=== PATIENT | male | born 1995 | race Caucasian/White ===

== ENCOUNTER 2018-06-17 20:48 | Emergency (ER) | payer BC ==
[2018-06-17 20:57] VITALS: BP 129/88
[2018-06-17] MEDS ORDERED: oxyCODONE/Acetamin 5/325 MG* TAB PO ONE (21:15)
[2018-06-17] MEDS ORDERED: Clindamycin CAP* 150 MG PO ONE (21:15)
--- NOTE | 2018-06-17 21:18 | ED ---
Throat Pain/Nasal Congestion - HPI Summary HPI Summary: A 22 y/o female presents to [facility] with a chief complaint of a back left toothache for the past two to three days. He rates his pain as an 8/10 in severity. He notes that he has an appointment with his dentist next week. He claims that he tried Tylenol [employer] to no relief. He denies fevers or chills. - History of Current Complaint Chief Complaint: EDDentalPain Time Seen by Provider: 06/17/18 21:10 Hx Obtained From: Patient Onset/Duration: Sudden Onset, Lasting Days, Still Present Severity: Severe Associated Signs And Symptoms: Positive: Negative - fever, chills Cough: None - Allergies/Home Medications Allergies/Adverse Reactions: Allergies Allergy/AdvReac Type Severity Reaction Status Date / Time No Known Allergies Allergy Verified 06/17/18 20:53 PMH/Surg Hx/FS Hx/Imm Hx Endocrine/Hematology History: Denies: Hx Diabetes Cardiovascular History: Denies: Hx Hypertension - Surgical History Surgery Procedure, Year, and Place: wisdom tooth removal Infectious Disease History: No Infectious Disease History: Denies: Traveled Outside the [place] in Last 30 Days - Family History Known Family History: Positive: Diabetes - both parents - Social History Alcohol Use: None Hx Substance Use: Yes Substance Use Type: Reports: Marijuana Hx Tobacco Use: Yes Smoking Status (MU): Current Some Day Smoker Review of Systems Negative: Fever, Chills Positive: Dental Pain All Other Systems Reviewed And Are Negative: Yes Physical Exam - Summary Physical Exam Summary: Appearance: Well appearing, no pain distress Skin: warm, dry, reflects adequate perfusion Head/face: tenderness over 17th tooth Eyes: EOMI, ZULLY ENT: normal Neck: supple, non-tender Respiratory: CTA, breath sounds present Cardiovascular: RRR, pulses symmetrical Abdomen: non-tender, soft Musculoskeletal: normal, strength/ROM intact Neuro: normal, sensory motor intact, A&Ox3 Triage Information Reviewed: Yes Vital Signs On Initial Exam: Initial Vitals Temp Pulse Resp BP Pulse Ox 98.1 F 90 18 129/88 97 06/17/18 20:53 06/17/18 20:53 06/17/18 20:53 06/17/18 20:53 06/17/18 20:53 Vital Signs Reviewed: Yes Diagnostics - Vital Signs Vital Signs Temp Pulse Resp BP Pulse Ox 06/17/18 20:53 98.1 F 90 18 129/88 97 - Laboratory Lab Statement: Any lab studies that have been ordered have been reviewed, and results considered in the medical decision making process. EENT Course/Dx - Course Course Of Treatment: A 22 y/o female presents to [facility] with a chief complaint of a back left toothache for the past two to three days. The physical exam revealed tenderness over 17th tooth. The patient will be discharged with prescriptions for Motrin, Ultram and Clindamycin. The patient will follow up with his dentist and is agreeable with this plan. - Differential Diagnoses Differential Diagnoses: Other - dental pain - Diagnoses Provider Diagnoses: Pain, dental Discharge - Sign-Out/Discharge Documenting (check all that apply): Patient Departure - DC Patient Received Moderate/Deep Sedation with Procedure: No - Discharge Plan Condition: Stable Disposition: HOME Prescriptions: Clindamycin HCl 300 mg PO QID #40 capsule Ibuprofen TAB* [Motrin TAB* 600 MG] 600 mg PO Q8H PRN #15 tab MDD 3 PRN Reason: Pain Tramadol HCl [Ultram] 50 mg PO BID #6 tablet MDD 2 Tramadol HCl [Ultram] 50 mg PO BID #6 tablet MDD 2 Patient Education Materials: Toothache (ED) Referrals: [facility] [place] [facility]ERR[facility] [Outside] - 3 Days Additional Instructions: Follow up with your dentist. Return to the ED if you experience any new or worsening symptoms. - Billing Disposition and Condition Condition: STABLE Disposition: Home - Attestation Statements Document Initiated by Anh: Yes Documenting Scribe: Chao Landin Provider For Whom Anh is Documenting (Include Credential): Jason Campos MD Scribe Attestation: Chao Renee scribed for Jason Campos MD on 06/18/18 at 1039. Scribe Documentation Reviewed: Yes Provider Attestation: The documentation as recorded by the Chao jamison accurately reflects the service I personally performed and the decisions made by Jason irizarry MD Status of Scribe Document: Viewed
== END 2018-06-17 21:30 | disposition home or self-care (01) ==
LOC: ED 20:48
DX: K08.89 Other specified disorders of teeth and supporting structures (principal); Z72.0 Tobacco use
CPT/HCPCS: 99282; A9270-GY

== ENCOUNTER 2018-11-26 17:56 | Emergency (ER) | payer BC, OTHER ==
[2018-11-26] MEDS ORDERED: Lidocaine 1% MPF ** 5 ML VIAL INJ ONE (19:46)
--- NOTE | 2018-11-26 19:48 | ED ---
Laceration/Wound HPI - HPI Summary HPI Summary: 23 year old male presents with laceration to right thumb today. He states that he cut it while cutting earl. He states a coworker place glue on it and stuck a bandage on it. The glue was not dry. He states that glue stuck to the bandage. No active bleeding. Tetanus up-to-date. no medical conditions. he is right handed. - History of Current Complaint Stated Complaint: CUT MY FINGER PER PT Time Seen by Provider: 11/26/18 19:33 Pain Intensity: 3 - Allergy/Home Medications Allergies/Adverse Reactions: Allergies Allergy/AdvReac Type Severity Reaction Status Date / Time No Known Allergies Allergy Verified 11/26/18 18:01 Home Medications: Home Medications NK [No Home Medications Reported] 11/26/18 [History Confirmed 11/26/18] PMH/Surg Hx/FS Hx/Imm Hx Endocrine/Hematology History: Denies: Hx Diabetes Cardiovascular History: Denies: Hx Hypertension - Surgical History Surgery Procedure, Year, and Place: wisdom tooth removal Infectious Disease History: No Infectious Disease History: Denies: Traveled Outside the [place] in Last 30 Days - Family History Known Family History: Positive: Diabetes - both parents - Social History Alcohol Use: Daily Alcohol Amount: 3 beer/night Hx Substance Use: Yes Substance Use Type: Reports: None Substance Use Comment - Amount & Last Used: occasionally Hx Tobacco Use: Yes Smoking Status (MU): Former Smoker Review of Systems Negative: Fever Negative: Chest Pain Negative: Shortness Of Breath Positive: Myalgia - right finger laceration All Other Systems Reviewed And Are Negative: Yes Physical Exam Triage Information Reviewed: Yes Vital Signs On Initial Exam: Initial Vitals Temp Pulse Resp BP Pulse Ox 98.1 F 73 16 146/86 98 11/26/18 17:58 11/26/18 17:58 11/26/18 17:58 11/26/18 17:58 11/26/18 17:58 Vital Signs Reviewed: Yes Appearance: Positive: Well-Appearing Skin: Positive: Warm, Dry, Other - 1cm by 1/4cm laceration to right thumb near nail Head/Face: Positive: Normal Head/Face Inspection Eyes: Positive: Normal, Conjunctiva Clear ENT: Positive: Pharynx normal Respiratory/Lung Sounds: Positive: Clear to Auscultation, Breath Sounds Present Cardiovascular: Positive: Normal, RRR Musculoskeletal: Positive: Strength/ROM Intact - right thumb, Other - capillary refill<2 secs Neurological: Positive: Normal Psychiatric: Positive: Normal Procedures - Sedation Patient Received Moderate/Deep Sedation with Procedure: No - Laceration/Wound Repair 1 Location: Other - right thumb Description: Irregular Anesthesia: Digital, 1.0% Length, Depth and Shape: 1cm by 1/4cm Closure: Single Layer Suture Type: Prolene Number of Sutures: 2 Sterile Dressing Applied?: No - bandaide Diagnostics - Vital Signs Vital Signs Temp Pulse Resp BP Pulse Ox 11/26/18 17:58 98.1 F 73 16 146/86 98 - Laboratory Lab Statement: Any lab studies that have been ordered have been reviewed, and results considered in the medical decision making process. Laceration Repair Course/Dx - Course Course Of Treatment: 23 year old male presents with laceration to right thumb today. He states that he cut it while cutting earl. He states a coworker place glue on it and stuck a bandage on it. The glue was not dry. He states that glue stuck to the bandage. No active bleeding. Tetanus up-to-date. On exam glue stuck to right thumb laceration. Removed glue. Numbed area and placed 2 stitches. told to keep area clean and dry. Patient understands and agrees with plan. - Differential Dx Differental Diagnoses: Abrasion, Avulsion, Laceration - Clinical Impression Provider Diagnoses: Laceration of right thumb Discharge ED - Sign-Out/Discharge Documenting (check all that apply): Patient Departure - Discharge Plan Condition: Good Disposition: HOME Patient Education Materials: Care For Your Stitches (ED) Referrals: [facility] [place] [facility] RE[facility]ERR[facility] [Outside] Additional Instructions: Take Tylenol or ibuprofen for pain every 6 hours as needed Keep area clean and dry for 24 hours Return to ED or primary in 8-10 days to have sutures removed Return to ED if develop signs of infection such as fever, spreading redness, or pus. - Billing Disposition and Condition Condition: GOOD Disposition: Home
[2018-11-26 20:41] VITALS: BP 138/78
== END 2018-11-26 20:40 | disposition home or self-care (01) ==
LOC: ED 17:56
DX: S61.011A Laceration without foreign body of right thumb without damage to nail, initial encounter (principal); W26.0XXA Contact with knife, initial encounter; Y93.G3 Activity, cooking and baking; Y92.9 Unspecified place or not applicable; Z87.891 Personal history of nicotine dependence
CPT/HCPCS: 12001; 99282